=== PATIENT | male | born 1970 | race Caucasian/White ===

== ENCOUNTER 2017-08-02 10:28 | Emergency (ER) | payer OTHER ==
[2017-08-02 11:46] VITALS: RESP 16
--- NOTE | 2017-08-02 12:02 | CPEKG ---
Heart Rate: 60 RR Interval: 1000 P-R Interval: 156 QRSD Interval: 90 QT Interval: 400 QTC Interval: 400 P Slovan: 64 QRS Slovan: 56 T Wave Slovan: 30 EKG Severity - NORMAL ECG - EKG Impression: SINUS RHYTHM Electronically Signed By: Wesley Wilder 02-Aug-2017 12:07:37
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
[2017-08-02 12:23] LABS: % IMMATURE GRANULYOCYTES 0.1 % (0.0-1.1); ABSOLUTE IMMATURE GRANULOCYTES 0.01 10^3/uL (0.00-0.10); ADD DIFF? NO; ADD MORPH? NO; ADD SCAN? NO; ATYPICAL LYMPHOCYTE FLAG 0 (0-99); FRAGMENT RBC FLAG 0 (0-99); HEMATOCRIT 48.9 % (40.0-51.0); HEMOGLOBIN 17.1 g/dL (13.7-17.5); LEFT SHIFT FLG 0 (0-99); LIPEMIA HEMOLYSIS FLAG 90 (0-99); MEAN CELL HEMOGLOBIN 29.1 pg (27.9-34.1); MEAN CELL VOLUME 83.3 fL (81.5-99.8); MEAN PLATELET VOLUME 9.8 fL (8.7-11.7); PLATELET CLUMPS FLAG 10 (0-99); PLATELET COUNT 203 10^3/uL (150-400); RED BLOOD CELL COUNT 5.87 10^6/uL (4.40-6.38); RED CELL DISTRIBUTION WIDTH 12.8 % (11.5-15.2)
[2017-08-02 12:33] LABS: ANION GAP 13 mEq/L (8-16); CALCIUM 10.1 mg/dL (8.5-10.4); CARBON DIOXIDE 24 mEq/l (22-31); CHLORIDE 104 mEq/L (97-110); CREATININE 1.1 mg/dL (0.7-1.3); GLOMERULAR FILTRATION RATE > 60; GLUCOSE 104 mg/dL (70-100); POTASSIUM 4.1 mEq/L (3.5-5.2); SODIUM 141 mEq/L (134-144)
[2017-08-02 12:44] LABS: TROPONIN I < 0.012 ng/mL (0.000-0.034)
[2017-08-02 13:17] VITALS: BP 117/66; O2SAT 93
[2017-08-02 13:18] VITALS: PULSE 56; TEMP 97.9
== END 2017-08-02 13:44 | disposition home or self-care (01) ==
DX: R07.9 Chest pain, unspecified (principal)